=== PATIENT | female | born 1980 | race Caucasian/White ===

== ENCOUNTER → 2020-06-04 08:00 | Outpatient (CLI) | payer OTHER, SELFPAY ==
--- NOTE | ~2020-06-04 | MM_ITS ---
EXAMINATION: MM screening mattie BI w beth HISTORY: Baseline screening mammogram TECHNIQUE: Craniocaudal and mediolateral oblique 3-D tomosynthesis images were obtained and synthetic 2-D images were generated. CAD analysis was submitted and interpreted. COMPARISON: None, baseline BREAST PARENCHYMAL COMPOSITION: The breasts are heterogeneously dense, which may obscure small masses .2 FINDINGS: RIGHT BREAST: There is no evidence of suspicious mass, calcification, or architectural distortion to suggest malignancy. LEFT BREAST: There is a possible mass anterior third outer, slightly upper breast 2 cm from the nippl e on mediolateral oblique/41. IMPRESSION: 1. Possible left breast mass. 2. Additional mammographic views and possible breast ultrasound are recommended to evaluate for scooby cadena and establish a baseline given that this is the first mammographic examination. BI-RADS Category 0: Incomplete: Needs additional imaging evaluation. Reviewed, dictated and finalized at location A. 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 Possible left breast mass. 2. Additional mammographic views and possible breast ultrasound are recommended to evaluate for malignancy and establish a baseline given that this is the fir st mammographic examination. BI-RADS Category 0: Incomplete: Needs additional imaging evaluation.
== END ==
PROVIDERS: Visit Provider Nurse Practitioner Obstetrics & Gynecology
DX: Z12.31 Encounter for screening mammogram for malignant neoplasm of breast (principal); R92.8 Other abnormal and inconclusive findings on diagnostic imaging of breast
CPT/HCPCS: 77063; 77067

== ENCOUNTER → 2020-06-26 07:53 | Outpatient (CLI) | payer OTHER, SELFPAY ==
--- NOTE | ~2020-06-26 | MMUS_ITS ---
EXAMINATION: MM diagnostic mammo unilat LT, US breast LT limited HISTORY: Possible left breast mass reported on 06/04/2020 screening mammogram TECHNIQUE: Additional 3-D tomosynthesis images of the left breast were performed and synthetic 2-D im ages were generated. CAD analysis was submitted and interpreted. High resolution upper outer and uppe r inner left breast ultrasound was performed. COMPARISON: 06/04/2020 bilateral digital screening mammogram FINDINGS: MAMMOGRAPHIC FINDINGS: There is dense stroma which may obscure masses. A 5.5 mm circumscribed mass is suggested in the upper outer quadrant of the left breast. Ultrasound c orrelation was obtained. ULTRASOUND: 2:00 2 cm from nipple: Parallel circumscribed sonolucency measuring 3.8 x 6.4 x 6.3 mm, compatible wi th simple cyst. No other suspicious finding is noted. IMPRESSION: 1. Benign 6.4 mm cyst at 2:00 2 cm from nipple; no mammographic evidence of malignancy 2. Routine annual mammographic screening is recommended. BI-RADS Category 2: Benign finding(s). Reviewed, dictated and finalized at location A. 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 Benign 6.4 mm cyst at 2:00 2 cm from nipple; no mammographic evidence of mal ignancy 2. Routine annual mammographic screening is recommended. BI-RADS Category 2: Benign finding(s).
== END ==
PROVIDERS: Visit Provider Nurse Practitioner Obstetrics & Gynecology
DX: R92.8 Other abnormal and inconclusive findings on diagnostic imaging of breast (principal); N60.02 Solitary cyst of left breast
CPT/HCPCS: 76642; 77065

== ENCOUNTER → 2021-09-09 14:02 | Outpatient (CLI) | payer OTHER, SELFPAY ==
--- NOTE | ~2021-09-09 | MM_ITS ---
EXAMINATION: MM screening mattie BI w beth HISTORY: Screening TECHNIQUE: Craniocaudal and mediolateral oblique 3-D tomosynthesis images were obtained and synthetic 2-D images were generated. CAD analysis was submitted and interpreted. COMPARISON: 06/04/2020 BREAST PARENCHYMAL COMPOSITION: The breasts are extremely dense, which lowers the sensitivity of mamm ography FINDINGS: There is no evidence of suspicious mass, calcification, or architectural distortion to sugg est malignancy in either breast. There has been no suspicious interval change. IMPRESSION: 1. No mammographic evidence of malignancy. 2. Recommend routine screening mammography in one year. BI-RADS Category 1: Negative Reviewed, dictated and finalized at location A.
== END ==
PROVIDERS: Visit Provider Nurse Practitioner Obstetrics & Gynecology
DX: Z12.31 Encounter for screening mammogram for malignant neoplasm of breast (principal)
CPT/HCPCS: 77063; 77067

== ENCOUNTER → 2022-09-15 10:45 | Outpatient (CLI) | payer OTHER, SELFPAY ==
--- NOTE | ~2022-09-15 | MM_ITS ---
EXAMINATION: MM screening mattie BI w beth HISTORY: Screening mammogram TECHNIQUE: Craniocaudal and mediolateral oblique 3-D tomosynthesis images were obtained and synthetic 2-D images were generated. Bilateral rotated lateral CC views. CAD analysis was submitted and interp reted. COMPARISON: September 09, 2021 bilateral screening mammogram June 26, 2020 diagnostic left mammogram and limited left breast ultrasound 06/04/2020 bilateral screening mammogram BREAST PARENCHYMAL COMPOSITION: The breasts are extremely dense, which lowers the sensitivity of mamm ography. FINDINGS: Scattered bilateral benign punctate microcalcifications and a benign calcified microhematom as on the left. There is no evidence of suspicious mass, calcification, or architectural distortion t o suggest malignancy in either breast. There has been no suspicious interval change. IMPRESSION: 1. No mammographic evidence of malignancy. 2. Recommend routine screening mammography in one year. BI-RADS Category 2: Benign finding(s). Reviewed, dictated and finalized at location A.
== END ==
PROVIDERS: PCP Nurse Practitioner Obstetrics & Gynecology; Visit Provider Nurse Practitioner Obstetrics & Gynecology
DX: Z12.31 Encounter for screening mammogram for malignant neoplasm of breast (principal)
CPT/HCPCS: 77063; 77067

== ENCOUNTER → 2023-07-27 09:19 | Outpatient (CLI) | payer OTHER, SELFPAY ==
--- NOTE | ~2023-07-27 | MMUS_ITS ---
EXAMINATION: MM diagnostic mattie BI w beth, US breast BI complete HISTORY: Palpable right breast abnormality TECHNIQUE: Additional 3-D tomosynthesis images of the breasts were performed and synthetic 2-D images were generated. CAD analysis was submitted and interpreted. High resolution bilateral complete breas t ultrasound was performed. COMPARISON: Comparison to multiple prior studies sequentially, with oldest reviewed study dated 05/07. BREAST PARENCHYMAL COMPOSITION: Dense: The breasts are extremely dense, which lowers the sensitivity of mammography. FINDINGS: MAMMOGRAPHIC FINDINGS: There are no suspicious masses, calcifications or architectural distortion in either breast to sugges t malignancy. No significant interval change. There are benign bilateral breast calcifications. ULTRASOUND: Complete bilateral US of all 4 quadrants of the breasts and retroareolar region was reviewed. Right breast: At 10:00, 6 cm from the nipple in the area palpable concern there is an oval hypoechoic 6 mm mass with parallel orientation, circumscribed margins, no posterior features and no internal va scularity. At 1:00 near the areola there is a 2 mm cyst. At 7:00, 5 cm from the nipple there is a ova l hypoechoic mass with internal echogenic foci, possibly calcifications or milk of calcium measuring 4 mm. This is likely benign. There are the areola there is a 6 mm cyst. There is a second cyst at thi s location measuring 3 mm. Left breast: At 2:00, 1 cm from the nipple there is a 6 mm cyst. At 7:00, 4 cm from the nipple, there is a 4 mm cyst. At 9:00, 1 cm from the nipple there is an 8 mm cyst. At 11:00, 5 cm from the nipple, there is a 4 mm cyst. IMPRESSION: 1. Probable benign right breast masses located at 10:00, 6 cm from the nipple and 7:00, 5 cm from the nipple. No evidence for malignancy in the left breast. Benign findings. 2. Recommend 6 month follow-up Limited right breast ultrasound. BI-RADS category 3, probably benign findings. Reviewed, dictated and finalized at location A. 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 Probable benign right breast masses located at 10:00, 6 cm from the nipple a nd 7:00, 5 cm from the nipple. No evidence for malignancy in the left breast. B enign findings. 2. Recommend 6 month follow-up Limited right breast ultrasound. BI-RADS category 3, probably benign findings.
== END ==
PROVIDERS: PCP Nurse Practitioner; Visit Provider Nurse Practitioner
DX: N63.0 Unspecified lump in unspecified breast (principal); R92.8 Other abnormal and inconclusive findings on diagnostic imaging of breast
CPT/HCPCS: 76641; 77062; 77066; G0279

== ENCOUNTER 2023-09-28 09:53 | Outpatient (CLI) | payer OTHER, SELFPAY ==
--- NOTE | ~2023-09-28 | MR_ITS ---
MR breast BI wo/w con 09/28/2023 12:28 CDT INDICATION: Right breast lump. TECHNIQUE: MRI of the breasts perform using standard protocol pre-and post IV contrast with the follo wing sequences: Axial T2 STIR, axial T1, axial vibrant T1 with fat suppression precontrast and multip hasic postcontrast. 10 cc MultiHance administered intravenously. COMPARISON: Comparison to multiple prior studies sequentially, with oldest reviewed study dated 05/07. FINDINGS: There are no abnormalities on the precontrast sequences. There is minimal background parenc hymal enhancement. No enhancing lesions following contrast administration. No areas of enhancement meeting threshold criteria on CAD analysis. No evidence of signal abnormalities in the axillary or i nternal mammary node distributions. LEFT BREAST: No signal abnormalities on precontrast sequences. There is minimal background parenchym al enhancement. No enhancing lesions following contrast administration. No areas of enhancement me eting threshold criteria on CAD analysis. No evidence of signal abnormalities in the axillary or in ternal mammary node distributions. IMPRESSION: 1: Right breast: Negative. No evidence of malignancy. 2: Left breast: Negative. No evidence of malignancy. BI-RADS CATEGORY 3-PROBABLY BENIGN FINDING RECOMMENDATION: Follow-up Limited right breast ultrasound recommended in 6 months from prior studies dated 07/27/2023. Reviewed, dictated and finalized at location B. IMPRESSION: 1: Right breast: Negative. No evidence of malignancy. 2: Left breast: Negative. No evidence of malignancy. BI-RADS CATEGORY 3-PROBABLY BENIGN FINDING RECOMMENDATION: Follow-up Limited right breast ultrasound recommended in 6 epi hs from prior studies dated 07/27/2023.
== END 2023-09-28 09:54 | disposition home or self-care (01) ==
PROVIDERS: PCP Nurse Practitioner; Visit Provider Surgery
DX: N63.10 Unspecified lump in the right breast, unspecified quadrant (principal); R92.343 Mammographic extreme density, bilateral breasts
CPT/HCPCS: 77049; A9577; C8908

== ENCOUNTER 2024-02-23 09:20 | Outpatient (CLI) | payer OTHER, SELFPAY ==
--- NOTE | ~2024-02-23 | US_ITS ---
EXAMINATION TYPE: US breast RT limited COMPARISON: 07/27/2023 REASON FOR STUDY: R92.8 - Other abnormal and inconclusive findings on diagn... TECHNIQUE: Targeted sonographic evaluation of the right breast was performed. INTERPRETATION: At the 10:00 position right breast, 6 cm from the nipple, there is a 5 x 3 x 6 mm ovoid circumscribed wider than tall hypoechoic mass. There is mild posterior through transmission. At the 7:00 position right breast, 5 cm from the nipple, there is a wider than tall mildly complex cyst with a few interna l echoes, measuring 5 x 2 x 5 mm. IMPRESSION: Subcentimeter probable benign-appearing right breast masses, as detailed above. 6 month follow-up ult rasound recommended at time of bilateral mammography. BI-RADS CATEGORY: BI-RADS 3: Probably benign Reviewed, dictated and finalized at [facility]. IMPRESSION: Subcentimeter probable benign-appearing right breast masses, as detailed above. 6 month follow-up ultrasound recommended at time of bilateral mammography. BI-RADS CATEGORY: BI-RADS 3: Probably benign
== END 2024-02-23 09:21 | disposition home or self-care (01) ==
PROVIDERS: PCP Surgery; Visit Provider Surgery
DX: R92.8 Other abnormal and inconclusive findings on diagnostic imaging of breast (principal); N63.10 Unspecified lump in the right breast, unspecified quadrant
CPT/HCPCS: 76642

== ENCOUNTER 2024-09-18 08:02 | Outpatient (CLI) | payer OTHER, SELFPAY ==
--- NOTE | ~2024-09-18 | MMUS_ITS ---
EXAMINATION: MM diagnostic mattie BI w beth, US breast BI complete HISTORY: Unspecified lump in the right breast. TECHNIQUE: Additional 3-D tomosynthesis images of the breasts were performed and synthetic 2-D images were generated. CAD analysis was submitted and interpreted. High resolution bilateral complete breas t ultrasound was performed. COMPARISON: Comparison to multiple prior studies sequentially, with oldest reviewed study dated 05/07. BREAST PARENCHYMAL COMPOSITION: Dense: The breasts are extremely dense, which lowers the sensitivity of mammography. FINDINGS: MAMMOGRAPHIC FINDINGS: There is no evidence for malignancy in the left breast. There is a nodular asymmetries in the lower i nner quadrant of the left breast, anterior third. ULTRASOUND: Complete US of all 4 quadrants of the breast/s and retroareolar region was reviewed. Right breast: At 7:00, 5 cm from the nipple there is an oval hypoechoic 6 mm mass with internal calci fications at 7:00, 5 cm from the nipple, unchanged from prior study. At 10:00, 6 cm from the nipple t here is an intramammary lymph node measuring 8 mm cyst. At 11:00, 3 cm from the nipple there is a 5 m m cyst. At 12:00, 1 cm from the nipple there is a 6 mm cyst. Left breast: At 12:00, 1 cm from the nipple there is a 6 mm cyst. At 3:00, 1 cm from the nipple there is an oval hypoechoic mass measuring 6 mm likely benign complicated cyst. At 6:00, 2 cm from the nip ple there is a 3 mm oval hypoechoic mass with parallel orientation, no posterior features and no inte rnal vascularity, likely benign. At 10:00, 1 cm from the nipple there is an intramammary lymph node m easuring 5 mm. IMPRESSION: 1. Probable benign bilateral breast masses. 2. Recommend 6 month follow-up limited bilateral breast ultrasound and diagnostic left mammogram BI-RADS category 3, probably benign findings. Reviewed, dictated and finalized at location [] IMPRESSION: 1. Probable benign bilateral breast masses. 2. Recommend 6 month follow-up limited bilateral breast ultrasound and diagnost ic left mammogram BI-RADS category 3, probably benign findings.
== END 2024-09-18 08:03 | disposition home or self-care (01) ==
LOC: MICIMG 08:03
PROVIDERS: PCP Surgery; Visit Provider Surgery
DX: N63.13 Unspecified lump in the right breast, lower outer quadrant (principal); N63.11 Unspecified lump in the right breast, upper outer quadrant; R92.343 Mammographic extreme density, bilateral breasts
CPT/HCPCS: 76641; 77062; 77066; G0279